=== PATIENT | male | born 1955 | race Caucasian/White ===

== ENCOUNTER 2016-12-20 19:05 | Emergency (ER) | payer OTHER ==
[~2016-12-20] VITALS: Ht 180.3 cm; Wt 90.0 kg
[~2016-12-20 19:05] MED LIST: AMOX1TAB12 PO; BUPR1FIL3 PO; DOXY50SY PO; ENOX40SY4 SQ; FLUO10CA13 PO; MELO15TA24 PO; METH125V16 IVPush; NICO-485 TD; POLY17PO5 PO
[2016-12-20] MEDS ORDERED: SODIUM CHLORIDE FLUSH 10ML SYR IVF ONE (19:30)
[2016-12-20] MEDS ORDERED: DIPH,PERTUSS(ACELL),TET VAC/PF 0.5 ML IM-VACC ONE ×2 (19:30→21:32)
[2016-12-20] MEDS ORDERED: SODIUM CHLORIDE 0.9% 1,000ML IVBOLUS ONE (19:30)
[2016-12-20 19:32] LABS: HEMATOCRIT 53.6 % (39.2-51.8); HEMOGLOBIN 17.9 g/dL (13.7-18.0)
[2016-12-20 19:41] LABS: BLOOD UREA NITROGEN 3 mg/dL (7-18)
[2016-12-20] MEDS ORDERED: OMNIPAQUE 350 MG/ML, 100ML BOTTLE ONE (20:54)
[2016-12-20 21:09] VITALS: BP 136/75
== END 2016-12-21 00:08 | disposition home or self-care (01) ==
LOC: ED 21:42
DX: S01.01XA Laceration without foreign body of scalp, initial encounter (principal); J44.9 Chronic obstructive pulmonary disease, unspecified; F10.229 Alcohol dependence with intoxication, unspecified; F19.10 Other psychoactive substance abuse, uncomplicated; W18.30XA Fall on same level, unspecified, initial encounter; Y93.9 Activity, unspecified; Y99.8 Other external cause status; Y92.89 Other specified places as the place of occurrence of the external cause
CPT/HCPCS: 36415; 70450; 70496; 72125; 80048; 80307; 82040; 85025; 90471; 90715; 96360; 96361; 99285; J7030; Q9967; 12001; G0479

== ENCOUNTER 2018-11-13 19:04 | Emergency (ER) | payer MEDICAID, OTHER ==
[~2018-11-13] VITALS: Ht 175.3 cm; Wt 83.3 kg
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
--- NOTE | 2018-11-13 19:35 | NUR ---
PA AT BEDSIDE TO ASSESS PT
--- NOTE | 2018-11-13 20:15 | NUR ---
PT RESTING ON GURNEY, O2 REPLACED ON PT. PT IS ASKING WHY HE IS HERE, PT EDUCATED ON POC. CALL LIGHT WITHIN REACH.
--- NOTE | 2018-11-13 20:24 | NUR ---
ATTEMPTED BREATHALYZER, PT UNABLE TO BLOW LONG ENOUGH TO COMPLETE TEST
--- NOTE | 2018-11-13 21:34 | NUR ---
PT SLEEPING IN BED, RR EVEN AND UNLABORED, VSS. PT ABLE TO REPOSITION SELF IN BED. CURRENTLY AWAITING PT ABLE TO AMB WITH STEADY GAIT FOR DC. WILL CONTINUE TO MONITOR
--- NOTE | 2018-11-13 22:32 | NUR ---
PT CONTINUES TO SLEEP IN BED, RR EVEN AND UNLABORED, EASILY AROUSABLE TO VERBAL STIMULI. PT SATS CONTINUE TO DROP WHILE SLEEPING WITHOUT SUP O2. VSS. CALL LIGHT WITHIN REACH.
--- NOTE | 2018-11-13 22:50 | NUR ---
SLEEPING. AWAKENS TO VERBAL STIMULATION. NO DISTRESS.
--- NOTE | 2018-11-13 22:51 | NUR ---
UNABLE TO MAINTAIN O2 LEVEL DUE TO INTOXICATION LEVEL. WILL KEEP PT ON 2L NC.
--- NOTE | 2018-11-13 23:36 | NUR ---
SLEEPING. NO DISTRESS. CALL LIGHT IN REACH. VOIDED.
--- NOTE | 2018-11-14 00:39 | NUR ---
SLEEPING. NO DISTRESS. CHEST RISE AND FALL.
--- NOTE | 2018-11-14 00:54 | NUR ---
ALL. HAS DRESSED SELF AND PUT PROSTETIC LEG ON (L) W/O ASST. " I AM READY TO GO" THE PT WAS GIVEN A TAXI VOUCHER HOME. Addendum: 11/14/18 at 0056 by BLAIRE ERP UPDATED AND SAFE D/C COMPLETED.
[2018-11-14 00:59] VITALS: BP 106/64
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
== END 2018-11-14 01:00 | disposition home or self-care (01) ==
LOC: ED 11-14 00:49
DX: F10.229 Alcohol dependence with intoxication, unspecified (principal); Y90.0 Blood alcohol level of less than 20 mg/100 ml; Z72.9 Problem related to lifestyle, unspecified; J44.9 Chronic obstructive pulmonary disease, unspecified
CPT/HCPCS: 99283

== ENCOUNTER 2019-01-12 16:07 | Emergency (ER) | payer MEDICARE ==
[~2019-01-12] VITALS: Ht 175.3 cm; Wt 80.0 kg
[2019-01-12 16:18] VITALS: BP 100/68
--- NOTE | 2019-01-12 16:21 | NUR ---
BIB EMS FOR ABDOMEN PAIN, N/D, ETOH. PT STATES HE CONSUMED 24 OZ X3 BEERS. DIARRHEA X1 TODAY, SOILED PANTS. ABDOMEN TENDER TO PALPIATION. VS STABLE AT THIS TIME. AFEBRILE. NOT IN ANY DISTRESS.
--- NOTE | 2019-01-12 16:35 | NUR ---
Nela smith in ED - 01/12/19 at 1636 by JANNETH ORDERED MEAL TRAY. PT HAS NO NEEDS AT THIS TIME.
[2019-01-12] MEDS ORDERED: THIAMINE 100MG TABLET PO ONE (17:00)
[2019-01-12 17:03] LABS: BASOPHILS # (AUTO) 0.03 x10^3/uL (0-0.1); BASOPHILS % (AUTO) 0 % (0-1); EOSINOPHILS # (AUTO) 0.04 x10^3/uL (0-0.4); EOSINOPHILS % (AUTO) 1 % (1-7); LYMPHOCYTES % (AUTO) 18 % (22-44); MD NO; MEAN CORPUSCULAR HEMOGLOBIN 32.7 pg (27.5-34.5); MEAN CORPUSCULAR HGB CONC 33.6 g/dL (33.2-36.2); MEAN CORPUSCULAR VOLUME 97.5 fL (81-97); MEAN PLATELET VOLUME 7.6 fL (7.4-10.4); MONOCYTES # (AUTO) 0.65 x10^3/uL (0.2-0.8); MONOCYTES % (AUTO) 9 % (2-9); NEUTROPHILS # (AUTO) 5.09 x10^3/uL (1.8-6.8); NEUTROPHILS % (AUTO) 72 % (42-75); PLATELET COUNT 104 x10^3/uL (130-400); RED BLOOD COUNT 5.13 x10^6/uL (4.38-5.82); RED CELL DISTRIBUTION WIDTH 13.8 % (9.4-14.8)
[2019-01-12 17:08] LABS: ALANINE AMINOTRANSFERASE 85 U/L (12-78); ALBUMIN 3.3 g/dL (3.4-5.0); ANION GAP 11 mmol/L (5-15); CALCIUM 7.6 mg/dL (8.5-10.1); CHLORIDE 96 mmol/L (98-107); CREATININE 0.79 mg/dL (0.7-1.3)
[2019-01-12 17:11] LABS: ALKALINE PHOSPHATASE 90 U/L (45-117); BILIRUBIN,TOTAL 0.9 mg/dL (0.2-1.0); TOTAL PROTEIN 7.2 g/dL (6.4-8.2)
[2019-01-12 17:39] LABS: MICROSCOPIC INDICATED
[2019-01-12 17:52] LABS: CULTURE INDICATED? NO
--- NOTE | 2019-01-12 18:25 | NUR ---
Patient/Caregiver given discharge instructions and they have confirmed that they understand the instructions. Patient ambulatory with steady gait.
--- NOTE | 2019-01-12 18:36 | NUR ---
GIVEN NEW PANTS AND UNDERWEAR
== END 2019-01-12 18:37 | disposition home or self-care (01) ==
LOC: ED 18:31
DX: K70.0 Alcoholic fatty liver (principal); F10.20 Alcohol dependence, uncomplicated; J44.9 Chronic obstructive pulmonary disease, unspecified; F17.200 Nicotine dependence, unspecified, uncomplicated; Z90.49 Acquired absence of other specified parts of digestive tract; Y90.9 Presence of alcohol in blood, level not specified
CPT/HCPCS: 36415; 74022; 80053; 81001; 83690; 85025; 93005; 99284

== ENCOUNTER 2019-05-21 18:13 | Emergency (ER) | payer MEDICARE ==
[~2019-05-21] VITALS: Ht 162.6 cm; Wt 85.0 kg
[~2019-05-21 18:13] MED LIST changes: +HYDR-3237 PO; +MULT-500 PO
[2019-05-21 20:26] VITALS: BP 148/56
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
--- NOTE | 2019-05-21 20:50 | NUR ---
DR OBANDO AT BEDSIDE AT THIS TIME. DR. OBANDO REQUESTING THE REMOVAL OF PT RESTRAINTS AT THIS TIME. PT DENIES SI AT THIS TIME WITH DR. OBANDO AT BS.
--- NOTE | 2019-05-21 21:13 | NUR ---
PT ASLEEP IN [facility] AT THIS TIME.
[2019-05-21 21:42] LABS: BASOPHILS # (AUTO) 0.02 x10^3/uL (0-0.1); BASOPHILS % (AUTO) 0 % (0-1); EOSINOPHILS # (AUTO) 0.02 x10^3/uL (0-0.4); EOSINOPHILS % (AUTO) 0 % (1-7); LYMPHOCYTES # (AUTO) 2.24 x10^3/uL (1-3.4); LYMPHOCYTES % (AUTO) 38 % (22-44); MD NO; MEAN CORPUSCULAR HEMOGLOBIN 30.5 pg (27.5-34.5); MEAN CORPUSCULAR HGB CONC 33.2 g/dL (33.2-36.2); MEAN CORPUSCULAR VOLUME 91.8 fL (81-97); MONOCYTES # (AUTO) 0.31 x10^3/uL (0.2-0.8); MONOCYTES % (AUTO) 5 % (2-9); NEUTROPHILS # (AUTO) 3.34 x10^3/uL (1.8-6.8); NEUTROPHILS % (AUTO) 56 % (42-75); PLATELET COUNT 211 x10^3/uL (130-400); RED BLOOD COUNT 5.66 x10^6/uL (4.38-5.82); RED CELL DISTRIBUTION WIDTH 14.2 % (9.4-14.8)
[2019-05-21 21:45] LABS: ALANINE AMINOTRANSFERASE 127 U/L (12-78); ALBUMIN 3.5 g/dL (3.4-5.0); ANION GAP 12 mmol/L (5-15); CALCIUM 8.7 mg/dL (8.5-10.1); CHLORIDE 101 mmol/L (98-107); CREATININE 0.79 mg/dL (0.7-1.3); SALICYLATE LEVEL < 1.7 mg/dL (2.8-20.0)
[2019-05-21 21:47] LABS: ALKALINE PHOSPHATASE 97 U/L (45-117); BILIRUBIN,TOTAL 0.8 mg/dL (0.2-1.0); TOTAL PROTEIN 7.5 g/dL (6.4-8.2)
== END 2019-05-21 22:38 | disposition home or self-care (01) ==
LOC: ED 22:30
DX: F10.120 Alcohol abuse with intoxication, uncomplicated (principal); F17.200 Nicotine dependence, unspecified, uncomplicated; J44.9 Chronic obstructive pulmonary disease, unspecified; F32.9 Major depressive disorder, single episode, unspecified; R00.0 Tachycardia, unspecified; Z89.512 Acquired absence of left leg below knee; Z90.89 Acquired absence of other organs; Y90.0 Blood alcohol level of less than 20 mg/100 ml
CPT/HCPCS: 36415; 80053; 80307; 85025; 93005; 99284

== ENCOUNTER 2019-09-23 18:41 | Emergency (ER) | payer MEDICARE ==
[~2019-09-23] VITALS: Ht 170.2 cm; Wt 68.0 kg
--- NOTE | 2019-09-23 19:05 | NUR ---
PT DHRUV FROM HOME. PT WAS FOUND IN [facility] OF [facility]. PT USES A WALKER, BROUGHT TO ER BY EMS. PT ALSO L BKA. PT STATES HE DRANK 8BEERS TODAY (PER HIS NORMAL). UNK LOC. PT C/O ELBOW & HEADPAIN. TBS.
[2019-09-23] MEDS ORDERED: LIDOCAINE 2%, 20ML SQ ONE (20:00)
[2019-09-23] MEDS ORDERED: LIDOCAINE-MPF 2% ,5ML ONE (20:01)
[2019-09-23 21:17] VITALS: BP 87/54
--- NOTE | 2019-09-23 21:18 | NUR ---
PT SLEEPING. SPO2 DECREASED TO 84% RA. EASILY ARROUSABLE. INCREASED TO 92%. PLACED ON 2L NC. WILL CTM.
== END 2019-09-23 22:34 | disposition home or self-care (01) ==
LOC: ED 19:30
DX: S06.0X0A Concussion without loss of consciousness, initial encounter (principal); R06.02 Shortness of breath; F10.10 Alcohol abuse, uncomplicated; Z72.9 Problem related to lifestyle, unspecified; W01.0XXA Fall on same level from slipping, tripping and stumbling without subsequent striking against object, initial encounter; J44.9 Chronic obstructive pulmonary disease, unspecified; Y93.89 Activity, other specified; Y92.009 Unspecified place in unspecified non-institutional (private) residence as the place of occurrence of the external cause; Y99.8 Other external cause status; Y90.9 Presence of alcohol in blood, level not specified
CPT/HCPCS: 70450; 71045; 99284

== ENCOUNTER 2020-05-03 16:11 | Inpatient (IN) | payer MEDICARE ==
[~2020-05-03] VITALS: Ht 175.3 cm; Wt 66.3 kg
[~2020-05-03 16:11] MED LIST changes: +GABA300C PO; +MOXI3DRO11 EACHEYE; +MULT-484 PO; +PHOS250T PO
--- NOTE | 2020-05-03 16:55 | NUR ---
BIBA FROM HOME FOR LEFT SHOULDER PAIN 8/10 SEVERITY AFTER GLF LAST NIGHT AFTER ATTEMPTING TO SLIDE FROM WHEELCHAIR INTO BED. 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 PT HAS SWELLING TO LEFT SHOULDER WITH RED/PURPLE BRUISING. PT REFUSING TO MOVE ARM DUE TO PAIN. PT ALSO HAS WET COUGH, STATES IT IS CHRONIC FOR HIM. PT IS UNABLE TO GET MEDICATIONS FOR HX OF COPD DUE TO COST OF MEDS. DENIES HITTING HEAD AND LOC.
[2020-05-03] MEDS ORDERED: SODIUM CHLORIDE 0.9% 1,000ML IVBOLUS ONE (17:00)
[2020-05-03 17:03] LABS: BASOPHILS % (AUTO) 1 % (0-1); EOSINOPHILS % (AUTO) 0 % (1-7); LYMPHOCYTES % (AUTO) 34 % (22-44); MEAN CORPUSCULAR HGB CONC 34.8 g/dL (33.2-36.2); MEAN PLATELET VOLUME 7.2 fL (7.4-10.4); MONOCYTES % (AUTO) 14 % (2-9); NEUTROPHILS % (AUTO) 51 % (42-75); PLATELET COUNT 241 x10^3/uL (130-400); RED BLOOD COUNT 5.62 x10^6/uL (4.38-5.82); RED CELL DISTRIBUTION WIDTH 13.8 % (9.4-14.8)
[2020-05-03 17:04] LABS: MD NO
[2020-05-03 17:15] LABS: ALANINE AMINOTRANSFERASE 47 U/L (12-78); ALBUMIN 3.2 g/dL (3.4-5.0); ANION GAP 11 mmol/L (5-15); CALCIUM 8.6 mg/dL (8.5-10.1); CHLORIDE 86 mmol/L (98-107); CREATININE 0.51 mg/dL (0.7-1.3)
[2020-05-03 17:18] LABS: ALKALINE PHOSPHATASE 123 U/L (45-117); BILIRUBIN,TOTAL 0.5 mg/dL (0.2-1.0); TOTAL PROTEIN 8.5 g/dL (6.4-8.2)
--- NOTE | 2020-05-03 17:25 | NUR ---
placed on 2 l nc for oxygen of 88% ra
--- NOTE | 2020-05-03 17:26 | NUR ---
PATRICK, FRIEND/SALES/MARKETING [phone]
[2020-05-03] MEDS ORDERED: MORPHINE SULFATE 4 MG/ML, 1ML ONE (17:54)
[2020-05-03] MEDS ORDERED: SODIUM CHLORIDE 0.9% 1,000 ML IV ONE (18:00)
[2020-05-03] MEDS ORDERED: MORPHINE SULFATE 4 MG/ML, 1ML IVPush ONE (18:00)
--- NOTE | 2020-05-03 18:14 | NUR ---
REPORTS PAIN NOW 6/10 AFTER PAIN MEDICATION
--- NOTE | 2020-05-03 18:26 | NUR ---
[facility] AT BEDSIDE
--- NOTE | 2020-05-03 18:35 | NUR ---
REPORT GIVEN TO CHELSEA TAPIA
[2020-05-03 19:41] VITALS: BP 99/64
[2020-05-03] MEDS ORDERED: FOLIC ACID 5 MG/ML IM ONE (20:00)
[2020-05-03] MEDS ORDERED: ALUMINUM/MAG/SIMETHICONE 30 ML UDC PO PRN (20:00)
[2020-05-03] MEDS ORDERED: MELATONIN 5 MG TABLET PO PRN (20:00)
[2020-05-03] MEDS ORDERED: DOCUSATE 100 MG CAPSULE PO PRN (20:00)
[2020-05-03] MEDS ORDERED: LORazepam 2 MG/ML, 1ML IV PRN ×5 (20:00)
[2020-05-03] MEDS ORDERED: ACETAMINOPHEN 325 MG TABLET PO PRN (20:00)
[2020-05-03] MEDS ORDERED: ONDANSETRON ODT 4 MG PO PRN (20:00)
[2020-05-03] MEDS: KETOROLAC 30 MG/1 ML IV PRN (20:51)
[2020-05-03] MEDS: LIDODERM 5% PATCH TD PRN (20:51)
[2020-05-03] MEDS ORDERED: FOLIC ACID 1 MG TABLET PO ONE (23:30)
[2020-05-03] MEDS: HEPARIN 5,000 UNITS/ML, 1ML SQ SCH (23:48)
[2020-05-04] MEDS: LORazepam 1MG TABLET PO PRN ×9 (00:14→23:01)
[2020-05-04] MEDS: NICOTINE 21 MG/24 HR PATCH.TD24 TD SCH ×2 (00:15→23:23)
[2020-05-04 01:17] VITALS: BP 97/47
[2020-05-04 05:12] LABS: MICROSCOPIC NOT IND
[2020-05-04 06:00] LABS: BASOPHILS % (AUTO) 2 % (0-1); EOSINOPHILS % (AUTO) 2 % (1-7); LYMPHOCYTES % (AUTO) 31 % (22-44); MEAN CORPUSCULAR HEMOGLOBIN 31.7 pg (27.5-34.5); MEAN PLATELET VOLUME 7.2 fL (7.4-10.4); MONOCYTES % (AUTO) 17 % (2-9); NEUTROPHILS % (AUTO) 49 % (42-75); PLATELET COUNT 213 x10^3/uL (130-400); RED BLOOD COUNT 4.54 x10^6/uL (4.38-5.82); RED CELL DISTRIBUTION WIDTH 14.4 % (9.4-14.8)
[2020-05-04 06:09] LABS: ANION GAP 6 mmol/L (5-15); CALCIUM 7.9 mg/dL (8.5-10.1); CHLORIDE 99 mmol/L (98-107)
[2020-05-04 06:11] LABS: CREATININE 0.48 mg/dL (0.7-1.3)
[2020-05-04 06:22] LABS: MD NO
[2020-05-04 07:35] VITALS: BP 101/63
[2020-05-04 07:59] VITALS: BP 100/60
[2020-05-04] MEDS ORDERED: LORazepam 0.5MG TABLET ONE (08:24)
[2020-05-04] MEDS: HEPARIN 5,000 UNITS/ML, 1ML SQ SCH ×3 (08:30→23:24)
[2020-05-04] MEDS: MULTIVITAMINS/MINERALS TABLET PO SCH (08:30)
[2020-05-04] MEDS: THIAMINE 100MG TABLET PO SCH (08:30)
[2020-05-04] MEDS ORDERED: HYDROcodone/APAP 5/325 TABLET PO PRN (14:30)
[2020-05-04 14:47] VITALS: BP 104/69
[2020-05-04 18:48] VITALS: BP 113/67
[2020-05-04 21:15] LABS: ANION GAP 7 mmol/L (5-15); CALCIUM 7.8 mg/dL (8.5-10.1); CHLORIDE 100 mmol/L (98-107); CREATININE 0.44 mg/dL (0.7-1.3)
[2020-05-04] MEDS: KETOROLAC 30 MG/1 ML IV PRN (23:02)
[2020-05-04] MEDS: LIDODERM 5% PATCH TD PRN (23:03)
[2020-05-05 00:54] VITALS: BP 98/64
[2020-05-05 01:32] LABS: ANION GAP 8 mmol/L (5-15); CHLORIDE 101 mmol/L (98-107); CREATININE 0.38 mg/dL (0.7-1.3)
[2020-05-05] MEDS: LORazepam 1MG TABLET PO PRN ×5 (02:53→16:32)
[2020-05-05 05:35] LABS: CHLORIDE 100 mmol/L (98-107)
[2020-05-05 05:42] LABS: ANION GAP 6 mmol/L (5-15); CALCIUM 8.1 mg/dL (8.5-10.1); CREATININE 0.41 mg/dL (0.7-1.3)
[2020-05-05 06:49] VITALS: BP 112/72
[2020-05-05] MEDS: MULTIVITAMINS/MINERALS TABLET PO SCH (08:41)
[2020-05-05] MEDS: HEPARIN 5,000 UNITS/ML, 1ML SQ SCH ×2 (08:41→16:05)
[2020-05-05] MEDS: THIAMINE 100MG TABLET PO SCH (08:41)
[2020-05-05] MEDS: NICOTINE 21 MG/24 HR PATCH.TD24 TD SCH (08:42)
[2020-05-05] MEDS ORDERED: POLYETHYLENE GLYCOL 17 GM PACKET PO SCH (09:00)
[2020-05-05 09:07] LABS: ANION GAP 6 mmol/L (5-15); CALCIUM 8.3 mg/dL (8.5-10.1); CHLORIDE 102 mmol/L (98-107); CREATININE 0.51 mg/dL (0.7-1.3)
[2020-05-05 13:03] VITALS: BP 108/72
[2020-05-05 13:16] LABS: ANION GAP 6 mmol/L (5-15); CALCIUM 8.4 mg/dL (8.5-10.1); CHLORIDE 104 mmol/L (98-107); CREATININE 0.51 mg/dL (0.7-1.3)
[2020-05-05] MEDS ORDERED: HYDR-1067 PO (15:11)
[2020-05-05] MEDS ORDERED: FLU VACC QS2020-21(6MOS UP)/PF 60MCG/0.5 ML SYR IM-VACC ONE (15:30)
[2020-05-05 17:25] LABS: ANION GAP 7 mmol/L (5-15); CALCIUM 8.2 mg/dL (8.5-10.1); CHLORIDE 102 mmol/L (98-107)
== END 2020-05-05 17:50 | DRG 563 ==
LOC: ED 17:40 → EDIP 18:08 → 4NE 19:29
PROVIDERS: ADMIT Internal Medicine; ATTEND Hospitalist
DX: S42.035A Nondisplaced fracture of lateral end of left clavicle, initial encounter for closed fracture (principal); F10.139 Alcohol abuse with withdrawal, unspecified; E87.1 Hypo-osmolality and hyponatremia; E87.2 Acidosis; F17.200 Nicotine dependence, unspecified, uncomplicated; J44.9 Chronic obstructive pulmonary disease, unspecified; K52.9 Noninfective gastroenteritis and colitis, unspecified; L30.9 Dermatitis, unspecified; M32.9 Systemic lupus erythematosus, unspecified; W05.0XXA Fall from non-moving wheelchair, initial encounter; F32.9 Major depressive disorder, single episode, unspecified; Y92.009 Unspecified place in unspecified non-institutional (private) residence as the place of occurrence of the external cause; Z59.0 Homelessness; Z79.899 Other long term (current) drug therapy; Z82.0 Family history of epilepsy and other diseases of the nervous system; Z89.511 Acquired absence of right leg below knee; Z89.512 Acquired absence of left leg below knee; Z91.14 Patient's other noncompliance with medication regimen; Z91.19 Patient's noncompliance with other medical treatment and regimen; Z97.13 Presence of artificial right leg (complete) (partial)
CPT/HCPCS: 36415; 70250; 71045; 80048; 80053; 80320; 81003; 83605; 83930; 83935; 84145; 85025; 90686; 96360; 99285; G0378; J1644; J1885; G0480; J2270; J7030

== ENCOUNTER 2020-06-21 18:20 | Emergency (ER) | payer MEDICARE ==
[~2020-06-21] VITALS: Ht 175.3 cm; Wt 76.0 kg
[~2020-06-21 18:20] MED LIST changes: +HYDR-2214 PO
--- NOTE | 2020-06-21 18:39 | NUR ---
pt bib ems after reporting 7/10 non radiating dull chest paint starting last night. pt recently d/c from [facility] for r. shoulder fracture. pt denies cardiac history. pt covered and feces and urine and cleaned. attached to all monitors. vss. hugo. pt fell asleep whilst this rn was asking clincal questions. awaiting orders.
--- NOTE | 2020-06-21 18:51 | NUR ---
REPORT FROM DAVONTE TAPIA. PT RESTING WITH NO NEEDS AT THIS TIME. CALL LIGHT IN REACH
[2020-06-21] MEDS ORDERED: ASPIRIN 81 MG TABLET CHEW PO ONE (19:30)
[2020-06-21] MEDS ORDERED: ACETAMINOPHEN 500 MG TABLET PO ONE ×2 (19:30→23:00)
[2020-06-21] MEDS ORDERED: SODIUM CHLORIDE 0.9% 1,000ML IVBOLUS ONE (19:30)
[2020-06-21] MEDS ORDERED: ACETAMINOPHEN 500 MG TABLET ONE (19:43)
[2020-06-21] MEDS ORDERED: ASPIRIN 81 MG TABLET CHEW ONE (19:43)
--- NOTE | 2020-06-21 19:51 | NUR ---
PT COMPLAINING OF PAIN. PT MEDICATED PER MAY. VSS. FLUIDS RUNNING. CALL LIGHT IN REACH
[2020-06-21 20:17] LABS: BASOPHILS % (AUTO) 1 % (0-1); EOSINOPHILS % (AUTO) 0 % (1-7); LYMPHOCYTES % (AUTO) 19 % (22-44); MEAN CORPUSCULAR HEMOGLOBIN 30.8 pg (27.5-34.5); MEAN CORPUSCULAR HGB CONC 34.1 g/dL (33.2-36.2); MEAN PLATELET VOLUME 7.3 fL (7.4-10.4); MONOCYTES % (AUTO) 8 % (2-9); NEUTROPHILS % (AUTO) 73 % (42-75); PLATELET COUNT 247 x10^3/uL (130-400); RED BLOOD COUNT 4.47 x10^6/uL (4.38-5.82); RED CELL DISTRIBUTION WIDTH 13.2 % (9.4-14.8)
[2020-06-21 20:18] LABS: MD NO
[2020-06-21 20:25] LABS: ALBUMIN 3.3 g/dL (3.4-5.0); ANION GAP 13 mmol/L (5-15); CALCIUM 8.7 mg/dL (8.5-10.1); CHLORIDE 94 mmol/L (98-107); CREATININE 0.63 mg/dL (0.7-1.3)
[2020-06-21 20:29] LABS: TROPONIN I < 0.015 ng/mL (0.000-0.045)
--- NOTE | 2020-06-21 21:15 | NUR ---
PT SLEEPING IN NAD. EVEN RISE AND FALL OF CHEST OBSERVED. VSS. CALL LIGHT IN REACH
[2020-06-21] MEDS ORDERED: OMNIPAQUE 350 MG/ML, 100ML BOTTLE ONE (21:30)
--- NOTE | 2020-06-21 21:53 | NUR ---
2ND PIV ATTEMPTED MULTIPLE TIMES WITH OUT SUCCESS.
--- NOTE | 2020-06-21 22:09 | NUR ---
PT AT CT
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
[2020-06-22 00:13] VITALS: BP 149/78
--- NOTE | 2020-06-22 00:16 | NUR ---
Patient given discharge instructions and they have confirmed that they understand the instructions. Patient taken out in wheelchair. pt given cab voucher
== END 2020-06-22 00:19 | disposition home or self-care (01) ==
LOC: ED 20:53
DX: R07.89 Other chest pain (principal); R00.0 Tachycardia, unspecified; R06.02 Shortness of breath; F17.210 Nicotine dependence, cigarettes, uncomplicated; J44.9 Chronic obstructive pulmonary disease, unspecified; G89.29 Other chronic pain; Z90.89 Acquired absence of other organs
CPT/HCPCS: 36415; 71045; 71275; 80048; 82040; 83880; 84484; 85025; 85379; 93005; 96360; 99285; 99406; J7030; Q9967

== ENCOUNTER 2020-11-25 01:59 | Emergency (ER) | payer MEDICARE ==
[~2020-11-25] VITALS: Ht 170.2 cm; Wt 75.0 kg
[~2020-11-25 01:59] MED LIST changes: +CHLO25CA9 PO; +DIVA125C2 PO; +GABA-826 PO; +METH4TAB2 PO
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
--- NOTE | 2020-11-25 07:04 | NUR ---
REPORT FROM ENMANUEL, PATIENT IN BED. RAILS UP. STILL SLURRING SOME BUT ORIENTED TO PLACE, PERSON. WILL ORDER BREAKFAST.
--- NOTE | 2020-11-25 09:15 | NUR ---
GOT PATIENT BREAKFAST AND SAT HIM UP, SWALLOWS OK
[2020-11-25 09:54] VITALS: BP 138/78
--- NOTE | 2020-11-25 09:54 | NUR ---
got patient taxi voucher and helped him outside.
== END 2020-11-25 09:56 | disposition home or self-care (01) ==
LOC: ED 05:31
DX: F10.220 Alcohol dependence with intoxication, uncomplicated (principal); J44.9 Chronic obstructive pulmonary disease, unspecified; Z89.512 Acquired absence of left leg below knee; Y90.0 Blood alcohol level of less than 20 mg/100 ml
CPT/HCPCS: 99283

== ENCOUNTER 2020-11-25 16:55 | Emergency (ER) | payer MEDICARE ==
--- NOTE | 2020-11-25 19:21 | NUR ---
THIS RN WENT INTO ROOM AND PT WAS AWAKE LAYING IN BED, THIS RN ATTEMPTED TO PUT ON BP CUFF AND PULSE OX BUT PT IMMEDIATELY TOOK THEM OFF AND DID NOT ALLOW THIS RN TO GET VITAL SIGNS
--- NOTE | 2020-11-25 19:31 | NUR ---
PT A/OX3, PT WHEELCHAIR BOUND BECAUSE PT ONLY HAS ONE LEG, PT ABLE TO ROLL HIMSELF IN HIS WHEELCHAIR, PT SAT UP IN BED AND GOT HIMSELF INTO HIS WHEELCHAIR, NAD UPON DISCHARGE, PT STILL REFUSED VITALS
--- NOTE | 2020-11-25 19:33 | NUR ---
PT CRUMPLED UP DISCHARGE PAPERS AND REFERRAL UP AND THREW THEM AWAY
== END 2020-11-25 19:34 | disposition home or self-care (01) ==
LOC: ED 17:00
DX: F10.220 Alcohol dependence with intoxication, uncomplicated (principal); Y90.9 Presence of alcohol in blood, level not specified
CPT/HCPCS: 99283

== ENCOUNTER 2020-11-26 11:47 | Observation (INO) | payer MEDICARE ==
[~2020-11-26] VITALS: Ht 165.1 cm; Wt 65.0 kg
[2020-11-26 14:53] VITALS: BP 102/56
== END 2020-11-26 19:17 | disposition home or self-care (01) ==
LOC: ED 12:17 → ORIP 12:57
PROVIDERS: ADMIT Emergency Medicine; ATTEND Emergency Medicine
DX: F10.220 Alcohol dependence with intoxication, uncomplicated (principal); J44.9 Chronic obstructive pulmonary disease, unspecified; Z59.0 Homelessness; Z63.8 Other specified problems related to primary support group; Z89.512 Acquired absence of left leg below knee; Z79.899 Other long term (current) drug therapy
CPT/HCPCS: 99284; G0378